=== PATIENT | female | born 1985 | race Caucasian/White ===

== ENCOUNTER 2021-03-02 17:08 | Inpatient (IN) ==
[2021-03-03 00:11] LABS: Bilirubin,Urine Negative (Negative); Blood,Urine Large (Negative); Clarity,Urine Turbid (Clear); Color,Urine Light-Orange (Yellow); Glucose,Urine (UA) Normal (Normal); Ketones,Urine 100 mg/dL (Negative); Leukocyte Esterase,Urine Trace (Negative); Mucus,Urine Few per lpf (None-Few); Nitrite,Urine Negative (Negative); Protein,Urine 30 mg/dL (Neg-Trace); RBC,Urine TNTC per hpf (0-3); Specific Gravity,Urine 1.026 (1.010-1.025); Squamous Epithelial Cell,Urine Few per hpf (None-Few); Urobilinogen,Urine Normal (Normal)
[2021-03-03 00:16] LABS: Amphetamine Screen,Urine Positive ng/mL (Cutoff=1000); Barbiturate Screen,Urine Negative ng/mL (Cutoff=200); Benzodiazepines Screen,Urine Negative ng/mL (Cutoff=200); Cannabinoid Screen,Urine Negative ng/mL (Cutoff = 50); Cocaine Screen,Urine Negative ng/mL (Cutoff= 300); Opiate Screen,Urine Negative ng/mL (Cutoff=300); Phencyclidine Screen,Urine Negative ng/mL (Cutoff=25)
[2021-03-03 01:00] LABS: Basophils % 0.3 %; Eosinophils % 0.5 %; Hematocrit 37.6 % (35.3-44.9); Hemoglobin 11.7 g/dL (11.5-15.4); Immature Granulocytes % 0.3 % (0-4); Lymphocytes # 3.1 K/mcL (0.6-4.6); Lymphocytes % 41.1 %; Mean Corpuscular HGB Conc 31.1 g/dL (31.6-35.5); Mean Corpuscular Hemoglobin 26.5 pg (28.0-33.3); Mean Corpuscular Volume 85.1 fL (83.0-100.0); Monocytes # 0.5 K/mcL (0.0-1.3); Monocytes % 6.5 %; Neutrophils # 3.9 K/mcL (1.6-8.9); Platelet Count 222 K/mcL (140-400); Red Blood Count 4.42 M/mcL (3.82-4.97); Red Cell Distribution Width 16.8 % (11.5-14.5); Segmented Neutrophils % 51.3 %; White Blood Count 7.5 K/mcL (4.3-11.1)
[2021-03-03 01:09] LABS: Acetaminophen < 10 mcg/mL (10-20); BUN/Creatinine Ratio 11 (6-26); Blood Urea Nitrogen 8 mg/dL (6-20); Calcium 9.1 mg/dL (8.6-10.3); Carbon Dioxide 18 mEq/L (23-29); Chloride 106 mEq/L (98-107); Chol/HDL Ratio 3.3 (0-4.9); Cholesterol 151 mg/dL (< 200); Ethanol < 10 mg/dL (Less than 10); Glucose 101 mg/dL (70-105); HDL Cholesterol 46 mg/dL (40-59); LDL Cholesterol,Calculated 87 mg/dL (< 100); Osmolality,Calculated 282 (280-300); Potassium 3.3 mEq/L (3.5-5.1); Salicylate < 2.5 mg/dL (15.0-30.0); Sodium 137 mEq/L (136-145); Triglycerides 88 mg/dL (< 150); eGFR For African Americans > 60 (> 60); eGFR For Non-African Americans > 60 (> 60)
[2021-03-03 05:07] LABS: Estimated Average Glucose 105 mg/dl; Hemoglobin A1C 5.3 %
[2021-03-03] MEDS ORDERED: Acetaminophen 325 MG TABLET PO PRN (16:07)
[2021-03-03] MEDS ORDERED: traZODone 50 MG TABLET PO PRN (16:07)
[2021-03-03] MEDS ORDERED: MOM Conc 10 ML UD.LIQ PO PRN (16:07)
[2021-03-03] MEDS ORDERED: *HR* LORazepam 1 MG TABLET PO PRN (16:07)
[2021-03-03] MEDS ORDERED: haloperidoL 5 MG TABLET PO PRN (16:07)
[2021-03-03] MEDS ORDERED: *HR* LORazepam 2 MG/ML VIAL IM PRN (16:07)
[2021-03-03] MEDS ORDERED: Haloperidol Lactate 5 MG/ML VIAL IM PRN (16:07)
[2021-03-03] MEDS ORDERED: Mag Hydrox/Al Hydrox/Simeth 30 ML UDC PO PRN (16:07)
[2021-03-04] MEDS: OLANZapine 10 MG TAB.RAPDIS PO SCH (21:33)
[2021-03-05] MEDS: OLANZapine 10 MG TAB.RAPDIS PO SCH (20:38)
[2021-03-06] MEDS: hydrOXYzine pamoate 25 MG CAPSULE PO PRN (18:50)
[2021-03-06] MEDS: OLANZapine 10 MG TAB.RAPDIS PO SCH (20:22)
[2021-03-07] MEDS: hydrOXYzine pamoate 25 MG CAPSULE PO PRN (19:37)
[2021-03-07] MEDS: OLANZapine 10 MG TAB.RAPDIS PO SCH (20:27)
[2021-03-08] MEDS: hydrOXYzine pamoate 25 MG CAPSULE PO PRN (20:38)
[2021-03-08] MEDS ORDERED: OLANZapine 10 MG TAB.RAPDIS PO SCH (21:00)
[2021-03-09] MEDS: OLANZapine 10 MG TAB.RAPDIS PO SCH (20:20)
[2021-03-09] MEDS: hydrOXYzine pamoate 25 MG CAPSULE PO PRN (20:20)
[2021-03-10] MEDS: hydrOXYzine pamoate 25 MG CAPSULE PO PRN ×2 (14:42→20:56)
[2021-03-10] MEDS: OLANZapine 5 MG TAB.RAPDIS PO SCH (14:42)
[2021-03-10] MEDS: OLANZapine 10 MG TAB.RAPDIS PO SCH (20:35)
[2021-03-11] MEDS: OLANZapine 5 MG TAB.RAPDIS PO SCH (09:40)
[2021-03-11] MEDS: hydrOXYzine pamoate 25 MG CAPSULE PO PRN (09:40)
[2021-03-11 10:26] VITALS: BP 114/77
== END 2021-03-11 18:08 | disposition home or self-care (01) | DRG 753 ==
LOC: EMEROOARM 17:08 → 1ANU 03-03 12:36
PROVIDERS: ADMIT Psychiatry & Neurology Psychiatry; ATTEND Psychiatry & Neurology Psychiatry